=== PATIENT | female | born 1950 | race Caucasian/White ===

== ENCOUNTER 2019-05-24 17:30 | Inpatient (IN) | payer OTHER ==
[~2019-05-24] VITALS: Ht 162.6 cm; Wt 67.0 kg
[2019-05-24 17:30] VITALS: BP 160/75
[~2019-05-24 17:30] MED LIST: ATIVAN1 MG; DAILY VITE1 EACH PO; DRY MOUTH45 ML PO; LOPERAMIDE 2 MG2 M1 PO; MEDROLDOSEPACK PO; MELATONIN3 MG PO; POTASSIUM20; PRAVACHOL40 MG PO; RANITIDINE 150150 M1 PO; SALINE NASAL SP30 ML; VENTOLIN HFA INH8 GM INH; ZADITOR5 M1
[2019-05-24 17:57] LABS: ABSOLUTE EOSINOPHILS 0.1 thou/uL (0.0-0.7); ABSOLUTE LYMPHOCYTES 1.7 thou/uL (0.8-5.3); ABSOLUTE MONOCYTES 0.8 thou/uL (0.0-1.2); ABSOLUTE NEUTROPHILS 3.9 thou/uL (1.6-8.1); BASOPHILS 0.7 %; EOSINOPHILS 2.2 %; HEMATOCRIT 46.5 % (37.0-47.0); HEMOGLOBIN 16.1 gm/dL (12.0-15.0); LYMPHOCYTES 26.1 %; MCH 32.2 pg (26.0-34.0); MCHC 34.6 g/dL (28.0-37.0); MCV 93.2 fL (80.0-100.0); MONOCYTES 11.5 %; MPV 8.9 fl. (7.2-11.1); NUCLEATED RBCS 0 /100WBC; PLATELET COUNT* 221 thou/uL (150-400); POLYS 59.5 %; RBC 4.99 mil/uL (4.20-5.00); RDW-CV 14.3 % (10.5-14.5); WBC 6.6 thou/uL (4.0-11.0)
[2019-05-24] MEDS ORDERED: ATENOLOL 25 MG25 M1 PO (17:59)
[2019-05-24] MEDS ORDERED: KLOR-CON 10 ER10 MEQ PO (17:59)
[2019-05-24] MEDS ORDERED: LOPERAMIDE 2 MG2 M1 PO (17:59)
[2019-05-24] MEDS ORDERED: SYMBICORT80 MCG/4.1 INH (18:00)
[2019-05-24] MEDS ORDERED: ASA81BEC PO (18:00)
[2019-05-24] MEDS ORDERED: EVOXAC30 MG PO (18:00)
[2019-05-24] MEDS ORDERED: ATIVAN1 M1 PO (18:01)
[2019-05-24] MEDS ORDERED: RESTASIS MULTI5.5 ML OPHTHALMIC (18:01)
[2019-05-24] MEDS ORDERED: MELATONIN10 M3 PO (18:02)
[2019-05-24] MEDS ORDERED: CELEXA 20 MG TA20 MG PO (18:02)
[2019-05-24] MEDS ORDERED: COQ-1030 MG PO (18:02)
[2019-05-24] MEDS ORDERED: CLIMARA1 EAC3 TRANSDERM (18:03)
[2019-05-24 18:10] LABS: CALCIUM 8.8 mg/dL (8.5-10.1); CREATININE 1.3 mg/dL (0.6-1.3); POTASSIUM 3.3 mmol/L (3.5-5.1)
[2019-05-24 18:13] LABS: APTT 25.8 Seconds (25.0-31.3); PROTIME 10.6 Seconds (9.20-11.50)
[2019-05-24 18:21] LABS: ALBUMIN 3.5 g/dL (3.4-5.0); TOTAL BILIRUBIN 0.6 mg/dL (<0.1-1.0); TOTAL PROTEIN 7.2 g/dL (6.4-8.2)
[2019-05-24 18:51] LABS: URINE BILIRUBIN NEGATIVE (Negative); URINE BLOOD NEGATIVE (Negative); URINE CLARITY SL CLOUDY; URINE COLOR YELLOW; URINE GLUCOSE-RANDOM NEGATIVE (Negative); URINE KETONES 1+ (Negative); URINE LEUKOCYTES-REFLEX 1+ (Negative); URINE NITRITE-REFLEX NEGATIVE (Negative); URINE PROTEIN NEGATIVE (Negative); URINE SPECIFIC GRAVITY 1.015 (1.005-1.030); URINE UROBILINOGEN 0.2 E.U./dl (0.2-1.0)
[2019-05-24 18:57] LABS: SQUAMOUS 4-10 Moderate /LPF (0-3)
[2019-05-24 18:58] LABS: CASTS None Seen /LPF (None Seen); URINE RBC 0-2 Rare /HPF (0-2); URINE WBC-REFLEX 0-5 Rare /HPF (0-5)
[2019-05-24 18:59] LABS: AMORPHOUS PHOSPHATES Many /LPF (None Seen)
[2019-05-24 20:20] VITALS: BP 160/77
[2019-05-24 20:26] VITALS: BP 155/65
[2019-05-25] VITALS: BP 150/89
[2019-05-25 04:00] VITALS: BP 144/88
--- NOTE | 2019-05-25 04:56 | NUR ---
RECIEVED PT PER CART FROM ER AT APPROX 2020. PT IS AWAKE AND ORIENTED TO SELF AND PLACE, PT IS STILL CONFUSED AND KEPT ON ASKING WHERE SHE IS AND WHAT AND WHY SHE'S HERE FOR. MATERNITY NURSE PLACED-TRACING SR. ADMISSION ASSESSMENT DONE AND CHARTED. PT ADVISED ON THE USE OF CALL LIGHT AND ON THE ROOM SET UP. FALL PRECAUTIONS IN PLACE. BED LOCKED AND IN LOWEST POSITION. CALL LIGHT WITHIN REACH. HOURLY ROUNDING DONE FOR PT SAFETY.
[2019-05-25 05:37] LABS: CHOLESTEROL 162 mg/dL (<200); HDL CHOLESTEROL 56 mg/dL (>40); LDL CHOLESTEROL 93 mg/dL (<100); TC:HDL 2.9 Ratio (Not establshd); TRIGLYCERIDE 65 mg/dL (<150); VLDL 13 mg/dL (<40)
[2019-05-25 05:50] LABS: SERUM ASSESSMENT Clear
[2019-05-25 07:47] LABS: CALCIUM 8.7 mg/dL (8.5-10.1); CREATININE 0.8 mg/dL (0.6-1.3); MAGNESIUM 1.7 mg/dL (1.8-2.4)
[2019-05-25 08:00] VITALS: BP 147/71
--- NOTE | 2019-05-25 11:09 | EKG ---
[place] [address] ELECTROCARDIOGRAM REPORT Name: NEREYDA ATKINS Room: [address] ADM IN .R.#: [id number] Admission: 05/24/19 Attend Phys: Anabella Mike Discharge: Date of : 52 Report #: [id number] THIS REPORT FOR: //name// [facility] ED Test Date: 2019-05-24 Test Time: 17:54:46 Pat Name: NEREYDA ATKINS Department: Room: 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: : 1950 Requested By: Mitch Hammond Order Number: [id number] MD: Jose Saleem Measurements Intervals [place] Rate: 70 P: 63 NM: 146 QRS: 48 QRSD: 88 T: -33 QT: 483 QTc: 522 Interpretive Statements Sinus rhythm Probable left atrial enlargement Borderline repolarization abnormality Prolonged QT interval No previous ECG available for comparison Electronically Signed On 05-25-2019 11:09:41 KING MAKER by Jose Saleem [email or web address] <ELECTRONICALLY SIGNED> By: Jose Saleem MD, [facility] 05/25/19 1109 [id number] Jose Saleem MD, FACC /EPI
[2019-05-25 12:14] VITALS: BP 145/76
--- NOTE | 2019-05-25 12:35 | NUR ---
Pt is A&O. Resides at home with her . Independent. No DME. No hx of HH or SNF. Goal is home at tx, Pt states that she may want HH. If Pt does decide on HH, fax facesheet, HH orders and H&P to [phone]
--- NOTE | 2019-05-25 13:47 | 2DMMODE ---
[place] [address] 2 D/M-MODE ECHOCARDIOGRAM Name: NEREYDA ATKINS Room: [address] IN [facility]#: [id number] Admission: 05/24/19 Attend Phys: Zack Gamez Discharge: Date of : 52 Date of Service: 05/25/19 1347 Report #: [id number] THIS REPORT FOR: //name// APPROVED REPORT Study performed: 05/25/2019 12:09:19 EXAM: Comprehensive 2D, Doppler, and color-flow Echocardiogram Patient Location: In-Patient Room #: 201 Status: routine BSA: 1.80 HR: 61 bpm BP: 147/71 mmHg Rhythm: NSR Other Information Study Quality: Good Indications CVA/TIA Echo Enhancing Agent Indication: Rule out Shunt Agent(s) / Amount(s) Used: Agitated Saline 10 cc 2D Dimensions IVSd: 10.20 (7-11mm) LVOT Diam: 18.39 (18-24mm) LVDd: 38.72 mm PWd: 10.76 (7-11mm) Ascending Ao: 30.51 (22-36mm) LVDs: 21.80 (25-40mm) Aortic Root: 28.64 mm Volumes Left Atrial Volume (Systole) LA ESV Index: 28.40 mL/m2 Aortic Valve AoV Peak Ron.: 1.11 m/s AO Peak Gr.: 4.95 mmHg LVOT Max P.25 mmHg AO Mean Gr.: 2.65 mmHg LVOT Mean P.53 mmHg LVOT Max V: 0.90 m/s AO V2 VTI: 25.76 cm LVOT Mean V: 0.57 m/s RYAN (VTI): 2.33 cm2 LVOT V1 VTI: 22.56 [place] [address] 2 D/M-MODE ECHOCARDIOGRAM Name: NEREYDA ATKINS Room: [address] IN .R.#: [id number] Admission: 05/24/19 Attend Phys: Zack Gamez Discharge: Date of : 52 Date of Service: 05/25/19 1347 Report #: [id number] Mitral Valve E/A Ratio: 1.72 MV Decel. Time: 157.47 ms MV E Max Ron.: 0.64 m/s MV PHT: 45.67 ms MVA (PHT): 4.82 cm2 TDI E/Lateral E': 5.82 E/Medial E': 6.40 Medial E' Ron.: 0.10 m/s Lateral E' Ron.: 0.11 m/s Pulmonary Valve PV Peak Ron.: 0.63 m/s PV Peak Gr.: 1.60 mmHg Tricuspid Valve RAP Estimate: 5.00 mmHg TR Peak Gr.: 23.83 mmHg RVSP: 28.00 mmHg PA Pressure: 28.00 mmHg Left Ventricle The left ventricle is normal size. There is normal LV segmental wall motion. There is normal left ventricular wall thickness. Left ventricular systolic function is normal. The left ventricular ejection fraction is within the normal range. LVEF is 60-65%. The left ventricular diastolic function is normal. Right Ventricle The right ventricle is normal size. The right ventricular systolic function is normal. Atria The left atrium size is normal. Interatrial septum is intact without evidence of ASD or PFO. The right atrium size is normal. Aortic Valve Mild aortic valve sclerosis. No aortic regurgitation is present. There is no aortic valvular stenosis. Mitral Valve The mitral valve is normal in structure. Mild mitral regurgitation. No evidence of mitral valve stenosis. Tricuspid Valve The tricuspid valve is normal in structure. Mild tricuspid regurgitation. [place] [address] 2 D/M-MODE ECHOCARDIOGRAM Name: NEREYDA ATKINS Room: [address] IN ..#: [id number] Admission: 05/24/19 Attend Phys: Zack Gamez Discharge: Date of : 52 Date of Service: 05/25/19 1347 Report #: [id number] Pulmonic Valve The pulmonary valve is normal in structure. Mild pulmonic regurgitation. Great Vessels The aortic root is normal in size. IVC is normal in size and collapses >50% with inspiration. Pericardium There is no pericardial effusion. <Conclusion> LVEF is 60-65%. Mild mitral regurgitation. Interatrial septum is intact without evidence of ASD or PFO. <ELECTRONICALLY SIGNED> By: Jose Saleem MD, [facility] 05/25/19 1347 46 46 Jose Saleem MD, FACC /INF
[2019-05-25 15:46] VITALS: BP 133/66
--- NOTE | 2019-05-25 18:22 | NUR ---
ASSUMED PT CARE AT 0700, PT A&O X4 WITH SOME FORGETFULNESS, VSS, RA, HAND MARKER TRACING SINUS RHYTHM, FULL ASSESSMENT CHARTED. PT TO DISCHARGE TOMORROW, HOURLY ROUNDING COMPLETED.
[2019-05-25 20:00] VITALS: BP 150/82
[2019-05-26] VITALS: BP 150/78
[2019-05-26 02:06] LABS: GLYCOHEMOGLOBIN (HGB A1C) 5.4 % (4.8-5.6)
[2019-05-26] MEDS ORDERED: RESTASIS MULTI5.5 ML EA. EYE (02:46)
--- NOTE | 2019-05-26 03:49 | NUR ---
ASSUMED PT CARE AT APPROX 1930. PT IS AWAKE AND ORIENTED X4, WITH SOME FORGETFULNESS. VSS ON ROOM AIR. IT BUSINESS PROCESS ARCHITECT IN PLACE TRACING SR. ASSESSMENT DONE AND CHARTED. PT IS ABLE TO SLEEP MOST OF THE NIGHT. CALL LIGHT WITHIN REACH. HIGH FALL PRECAUTIONS IN PLACE. HOURLY ROUNDING DONE FOR PT SAFETY.
[2019-05-26 04:00] VITALS: BP 141/68
[2019-05-26] MEDS ORDERED: MINOCYCLINE HC100 M2 PO (08:01)
[2019-05-26] MEDS ORDERED: PLAVIX 75 MG TA75 MG PO ×2 (08:01→13:26)
--- NOTE | 2019-05-26 11:57 | NUR ---
ASSUMED CARE OF PATIENT THIS AM AT 0730. PATIENT IS ALERT AND ORIENTED X 4. SHE DENIES PAIN OR WEAKNESS. NO NEUROLOGICAL DEFICITS ASSESSED. TELE SHOWS SR TO SB. PATIENT'S K+ LEVELS STILL LOW PER LAB. PO REPLACEMENT GIVEN. DR IN TO ROUND AND DISCHARGE PLANNED FOR TODAY AFTER ELECTROLYTE REPLACEMENT. PATIENT HAS BEEN UP IN THE ROOM WITH HER SPOUSE. NO FALLS OR INJURY. PATIENT STARTED ON PLAVIX TODAY PER ORDER AND ASA DISCONTINUED.
--- NOTE | 2019-05-26 12:58 | NUR ---
PT EVALUATION ORDERS RECEIVED AND ACKNOWLEDGED. PER NSG PENDING DISCHARGE TO HOME. PT UP IN ROOM WITH SPOUSE. SPOKE WITH PT AND SPOUSE. PT INDICATES SHE DOES NOT FEEL THAT ACUTE PT SERVICES ARE INDICATED AT THIS TIME. WILL DISCHARG PT ORDERS PER PT REQUEST.
[2019-05-26 13:12] LABS: MAGNESIUM 1.9 mg/dL (1.8-2.4); POTASSIUM 4.5 mmol/L (3.5-5.1)
[2019-05-26 13:28] VITALS: BP 141/68
--- NOTE | 2019-05-27 16:32 | NUR ---
PT. DISCHARGE TO HOME PRIOR TO O.T. EVAL. PLEASE ORDER FURTHER O.T. SERVICES IF NEEDED.
--- NOTE | 2019-06-03 13:36 | EEG ---
[address] [address] EEG STUDY REPORT Name: NEREYDA ATKINS Room: [address] IN M.R.#: [id number] Admission: 05/24/19 Attend Phys: Anabella Mike Discharge: 05/26/19 Date of : 52 Report #: [id number] THIS REPORT FOR: //name// CC: Salvatore Gamez DATE OF SERVICE: 05/25/2019 This patient is being evaluated for altered mental status. EEG was done by placing the electrode by standard 10-20 system of electrode placement. Both referential and sequential montages were used for recording. Background activity in this patient's EEG is about 11 Hz and 30 microvolts. Photic stimulation is unremarkable. The patient became drowsy and that is associated with bilateral slowing and vertex sharp waves. Throughout the record, no active epileptiform activity was noticed. IMPRESSION: This patient's EEG is unremarkable. Thank you very much for this referral. <ELECTRONICALLY SIGNED> By: Spencer Owens MD 06/03/19 1336 1423 1533Prenato Owens MD /nt
--- NOTE | 2019-06-03 13:36 | CON ---
[address] [address] CONSULTATION Name: WILBERTNEREYDA Dale Room: [address] IN M.R.#: [id number] Admission: 05/24/19 Attend Phys: Anabella Mike Discharge: 05/26/19 Date of : 52 Report #: [id number] THIS REPORT FOR: //name// CC: Salvatore Gamez DATE OF SERVICE: 05/25/2019 HISTORY OF PRESENT ILLNESS: This is a 69-year-old female patient who was admitted with somewhat of an unusual episode. She was sitting on the chair. She had some nausea and vomiting. She slumped and she was not able to walk. She was confused, but she has become better from that. The symptoms have not fully resolved. She never had this kind of symptoms before. She has multiple other problems. She goes to [facility]. Initially, they thought she has a Sjogren, but subsequently they thought she may have scleroderma. REVIEW OF SYSTEMS: Indicate that this patient has multiple problems. She has been seen at [facility] for rheumatological disorder. She has a history of anxiety and depression. She has a history of Sjogren and maybe scleroderma. She had hysterectomy in the past. She has dyslipidemia. She does have a history of hypertension. This was her relevant 14-point review of system. She does not complain of any new eye, ENT, cardiac, respiratory, , musculoskeletal, constitutional, dermatological, hematological, psychiatric, throat, allergic symptom associated with present symptomatology. PAST MEDICAL HISTORY: Positive for the diagnosis of scleroderma, but she also thinks she may have a Sjogren also. FAMILY HISTORY: Negative for any early age stroke. SOCIAL HISTORY: She says she does not smoke. PHYSICAL EXAMINATION: Indicates she is alert, responsive, able to follow simple and complex command. She is oriented today. Her thinks her memory and fund of knowledge has improved. Cranial nerve examination 2-12 looks unremarkable. Strength, sensation, reflexes and tone look symmetrical. There is no cerebellar sign. I could not have a very good look at the patient's fundus. There is no meningeal sign. There is no carotid bruit. She is thinly built individual. She does not have any dysmorphic features of eyes, ears and face. Her visions and hearing looks adequate. Cardiac exam is unremarkable. No respiratory difficulty or rhonchi was noticed on either side. Blood pressure is 144/88, respiration is 16, pulse is 66 and temperature is 97.9. LABORATORY DATA: White count is normal at 6.6. Potassium is trace low at 3.0. Magnesium was a trace low at 1.7. She did have a CT scan of the head, which was reviewed and that does not show any acute abnormality. [place] [address] CONSULTATION Name: NEREYDA ATKINS Room: [address] IN [facility].#: [id number] Admission: 05/24/19 Attend Phys: Anabella Mike Discharge: 05/26/19 Date of : 52 Report #: [id number] IMPRESSION: An episode which is not typical for transient ischemic attack or seizures, but both cannot be excluded. She is scheduled to have an MRI done and we will see what it shows. Further workup and management will depend upon the outcome of the testing. Symptom like this can be secondary to posterior fossa TIA, but as mentioned above, it is difficult to tell in this patient and we will await the results of MRI and EEG for the further workup and evaluation. Thank you very much for this consult and we will follow this patient along with you. <ELECTRONICALLY SIGNED> By: Spencer Owens MD 06/03/19 1336 0909 0924Spencer Owens MD /nt
== END 2019-05-26 14:55 | disposition home or self-care (01) | DRG 71 ==
LOC: M.ERS 17:30 → M.TBA-ER 18:41 → M.2W 18:41
PROVIDERS: Family Medicine; Internal Medicine; ADMIT Internal Medicine
DX: G45.4 Transient global amnesia (principal); N39.0 Urinary tract infection, site not specified; I16.1 Hypertensive emergency; I10 Essential (primary) hypertension; F32.9 Major depressive disorder, single episode, unspecified; E78.5 Hyperlipidemia, unspecified; F41.9 Anxiety disorder, unspecified; E78.00 Pure hypercholesterolemia, unspecified; E87.6 Hypokalemia; Z88.8 Allergy status to other drugs, medicaments and biological substances; Z91.040 Latex allergy status; Z79.899 Other long term (current) drug therapy; Z79.82 Long term (current) use of aspirin; Z90.49 Acquired absence of other specified parts of digestive tract; Z90.710 Acquired absence of both cervix and uterus

== ENCOUNTER 2019-06-02 22:34 | Inpatient (IN) | payer OTHER ==
[~2019-06-02] VITALS: Ht 162.6 cm; Wt 67.6 kg
[~2019-06-02 22:34] MED LIST changes: +ASA81BEC PO; +ATENOLOL 25 MG25 M1 PO; +ATIVAN1 M1 PO; +CELEXA 20 MG TA20 MG PO; +CLIMARA1 EAC3 TRANSDERM; +COQ-1030 MG PO; +EVOXAC30 MG PO; +KLOR-CON 10 ER10 MEQ PO; +MELATONIN10 M3 PO; +MINOCYCLINE HC100 M2 PO; +PLAVIX 75 MG TA75 MG PO; +RESTASIS MULTI5.5 ML EA. EYE; +RESTASIS MULTI5.5 ML OPHTHALMIC; +SYMBICORT80 MCG/4.1 INH
[2019-06-02] MEDS ORDERED: LOMOTIL 2.5-0.01 TAB PO (23:23)
[2019-06-02] MEDS ORDERED: KRILL OIL500 MG PO (23:24)
[2019-06-02] MEDS ORDERED: LOPERAMIDE 2 MG2 M1 PO (23:26)
[2019-06-02] MEDS ORDERED: BIOTIN 800 MCG1 EACH PO (23:26)
[2019-06-02 23:32] LABS: ABSOLUTE BASOPHILS 0.1 thou/uL (0.0-0.2); ABSOLUTE EOSINOPHILS 0.2 thou/uL (0.0-0.7); ABSOLUTE LYMPHOCYTES 1.1 thou/uL (0.8-5.3); ABSOLUTE MONOCYTES 0.6 thou/uL (0.0-1.2); BASOPHILS 1.1 %; EOSINOPHILS 3.2 %; HEMATOCRIT 44.8 % (37.0-47.0); HEMOGLOBIN 15.5 gm/dL (12.0-15.0); LYMPHOCYTES 15.5 %; MCH 32.3 pg (26.0-34.0); MCHC 34.6 g/dL (28.0-37.0); MCV 93.4 fL (80.0-100.0); MONOCYTES 8.4 %; MPV 9.3 fl. (7.2-11.1); NUCLEATED RBCS 0 /100WBC; PLATELET COUNT* 229 thou/uL (150-400); POLYS 71.8 %; RDW-CV 14.6 % (10.5-14.5); WBC 6.9 thou/uL (4.0-11.0)
[2019-06-02 23:42] LABS: CALCIUM 9.2 mg/dL (8.5-10.1); CREATININE 0.9 mg/dL (0.6-1.3)
[2019-06-02 23:46] LABS: ALBUMIN 3.2 g/dL (3.4-5.0); MAGNESIUM 1.6 mg/dL (1.8-2.4); TOTAL BILIRUBIN 0.4 mg/dL (<0.1-1.0)
[2019-06-03] VITALS (13 sets, daily range): BP systolic 111–175; BP diastolic 65–89
[2019-06-03 01:40] LABS: URINE BILIRUBIN NEGATIVE (Negative); URINE BLOOD TRACE (Negative); URINE CLARITY CLEAR; URINE COLOR YELLOW; URINE GLUCOSE-RANDOM NEGATIVE (Negative); URINE KETONES NEGATIVE (Negative); URINE LEUKOCYTES-REFLEX NEGATIVE (Negative); URINE NITRITE-REFLEX NEGATIVE (Negative); URINE PROTEIN NEGATIVE (Negative); URINE SPECIFIC GRAVITY <= 1.005 (1.005-1.030); URINE UROBILINOGEN 0.2 E.U./dl (0.2-1.0)
--- NOTE | 2019-06-03 06:39 | NUR ---
RECEIVED REPORT FROM SD MORELOS. PT TRANSFERRED TO 310. PT A&OX4. VSS. ADMISSION HISTORY & PHYSICAL ASSESSMENT COMPLETED AND CHARTED. PT ON RA. PT UPADLIB TO BSC. DENIES ANY PAIN OR DISCOMOFRT. INSTRUCTED ON NPO FOR US OF ABDOMEN TODAY. PT ABLE TO SLEEP WELL ON BED.
[2019-06-03 08:54] LABS: POTASSIUM 3.3 mmol/L (3.5-5.1)
[2019-06-03 10:59] LABS: ALBUMIN 2.9 g/dL (3.4-5.0); CALCIUM 8.5 mg/dL (8.5-10.1); CREATININE 0.8 mg/dL (0.6-1.3); POTASSIUM 3.3 mmol/L (3.5-5.1); TOTAL BILIRUBIN 0.4 mg/dL (<0.1-1.0); TOTAL PROTEIN 6.4 g/dL (6.4-8.2)
--- NOTE | 2019-06-03 11:10 | NUR ---
PT A&OX4 VSS. PT HAD ABD U/S THIS AM, AWAITING RESULTS. ORDER FOR ABD CT, PROCEDURE DELAYED R/T CRITICAL LAB RESULTS. LAB CONTACTED THIS NURSE WITH CRITICAL TROP OF 6.97. DR CONTI NOTIFIED AND ARRANGEMENTS TO TRANSFER PT TO TELE WERE MADE. CARDIOLOGY CONSULTED AND MET THIS NURSE AND PT IN ROOM ON 2ND FLOOR TO EVALUATE THIS PT. PT AND SPOUSE UPDATED WITH PHYSICIAN AT BEDSIDE. PT TRANSPORTED TO 2ND FLOOR ON BED WITH NURSING STAFF. ALL PERSONAL BELONGINGS ACCOMPANIED PT AND SPOUSE. BEDSIDE REPORT TO SARAH MORELOS ON TELE.
--- NOTE | 2019-06-03 12:00 | NUR ---
pt transferred from [facility] to [facility] floor. on ra. no sob. chest discomfort . vss. see chart. tracing sr on bus monitor. ekg done at bedside. k replacement given. iv fluid started at 100 per hour prior to cardiac cath procedure happening today. npo status. no further complaint. call light at reach. will continue to monitor
--- NOTE | 2019-06-03 12:14 | EKG ---
[place] [address] ELECTROCARDIOGRAM REPORT Name: NEREYDA ATKINS Room: [address] ADM IN M.R.#: [id number] Admission: 06/03/19 Attend Phys: Marimar Young Discharge: Date of : 52 Report #: [id number] THIS REPORT FOR: //name// 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 : 1950 Requested By: Adelaide Kay Order Number: [id number] MD: Jayme Berkowitz Measurements Intervals [place] Rate: 66 P: 48 TN: 142 QRS: 38 QRSD: 94 T: 31 QT: 463 QTc: 486 Interpretive Statements Sinus rhythm Borderline repolarization abnormality Borderline prolonged QT interval Baseline wander in lead(s) I,aVL Compared to ECG 05/24/2019 17:54:46 No significant changes Electronically Signed On 06-03-2019 12:14:10 CHEESEMAKER by Jayme Berkowitz [email or web address] <ELECTRONICALLY SIGNED> By: Jayme Berkowitz MD, [facility] 06/03/19 1214 2245 2245 Jayme Berkowitz MD, [facility] /EPI
--- NOTE | 2019-06-03 12:18 | NUR ---
heparin drip not started since cardiology as seen pt ans is to perform cardiac catheterization in one hour per dr Berkowitz say.
--- NOTE | 2019-06-03 14:04 | NUR ---
PT BACK FROM TRANSCRIPTION MANAGER AT 1350. NO STENT PLACED. R GROIN SITE IS INTACT. DRESSING DRY. PT DENIES CHEST PAIN. ON BEDREST UNITIL 0700 PM. USES BEDPAN. ATIVAN GIVEN. ESTROGEN PATCH ON R LOWER BELLY SINCE 2 WEEKS. PT STATES SHE WEARS PATCH Q WEEK. HOSPITALIST CONTACTED REGARDING ORDERING NEW PATCH. HOSPITALIST REFUSED ORDER DUE TO INCREASED RISK FOR HEART ATTACH OR STROKE WITH ESTROGEN HORMONE. PT DENIES. PAIN. PSYCH TO CBE CONSULTED. WILL CONTINUE TO MONITOR PT .CALL LIGHT AT REACH
--- NOTE | 2019-06-03 14:17 | CARD ---
[address] [address] CARDIAC CATH REPORT Name: NEREYDA ATKINS Room: [address] IN M.R.#: [id number] Admission: 06/03/19 Attend Phys: Siva Gee MD Discharge: Date of : 52 Report #: [id number] THIS REPORT FOR: //name// APPROVED REPORT Study performed: 06/03/2019 12:00:[address] Berkowitz Procedures Performed Left heart catheterization left ventriculography and selective coronary arteriography Indication Non-STEMI , Chest pain Risk Factors Hypercholesterolemia, Hypertension Procedure Narrative The patient was brought electively to the Cardiac Catheterization Laboratory and was prepped and draped in a sterile manner. The right femoral was infiltrated with 2% Lidocaine subcutaneous anesthesia. A 6 Romanian sheath was inserted into the right femoral artery. Coronary angiography was performed using coronary diagnostic catheters. The right coronary system was accessed and visualized with a Diagnostic catheter. The left coronary system was accessed and visualized with a Diagnostic catheter. The left ventricle was accessed and visualized with a Diagnostic catheter. Left ventricular/Aortic Valve gradient assessed via catheter pullback. Left ventriculogram was performed in BERRIOS projection. Pre-demployment femoral angiogram was performed . Closure device was deployed with a 6 Fr Mynx. Coronary Angiography The patient's coronary anatomy is right dominant. Diagnostic Cath Left Main 0% narrowing LAD 30% mid to distal LAD narrowing Circumflex Nondominant vessel with 0% narrowing Right Coronary Dominant vessel with 0% narrowing Left Ventriculography The left ventricle is normal in size with [place] [address] CARDIAC CATH REPORT Name: NEREYDA ATKINS Room: [address] IN M.R.#: [id number] Admission: 06/03/19 Attend Phys: Siva Gee MD Discharge: Date of : 52 Report #: [id number] left ventricular ejection fraction is estimated to be 60%. Left ventricular wall motion abnormalities are not present. There is no mitral insufficiency. Hemodynamics The aortic pressure is 170/70 mmHg with a mean of 94 mmHg. The left ventricular end diastolic pressure is 12 mmHg. There was no gradient across the aortic valve upon pullback. Conclusion #1 mild coronary artery disease characterized by the following: A 30% mid- distal LAD narrowing B normal left main circumflex and right coronary arteries #2 moderate systemic systolic hypertension #3 normal left ventricular systolic function, estimated ejection fraction being 60%. Recommendations Cardiac Risk Reduction Program Diagnostic Cath Approved by: Jayme Berkowitz MD Date/Time: 06/03/2019 14:16:26 <ELECTRONICALLY SIGNED> By: Jayme Berkowitz MD, [facility] 06/03/19 1417 1417 1417Jorajesh Berkowitz MD, FACC /INF
[2019-06-03 15:22] LABS: APTT 27.2 Seconds (25.0-31.3); PROTIME 10.2 Seconds (9.20-11.50)
--- NOTE | 2019-06-03 16:11 | NUR ---
PT NOT ABLE TO VOID USIG BEDPAN. ORDERED STRAIGHT CATHERIZATION. PT WAS STRAIGHT CATH AT 1605. OUTPUT OF 500 CC OF URINE
--- NOTE | 2019-06-03 18:45 | NUR ---
VITAL SIGNS CHARTED. R GROIN INTACT. NO FURTHER COMPLAINT
--- NOTE | 2019-06-03 19:04 | NUR ---
PT OFF BEDREST
--- NOTE | 2019-06-03 19:12 | NUR ---
PSYCH CONSULT DR HAS NO FURTHER RECOMMENDATION. SEE CHART
--- NOTE | 2019-06-03 19:25 | NUR ---
TROP LEVEL 11.1 CARIDOLOGY PAGED AND MESSAGE LEFT
--- NOTE | 2019-06-03 19:57 | EKG ---
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
--- NOTE | 2019-06-04 04:34 | NUR ---
PT A&O MAINTAINING SATS ON RA. OFF OF BED REST POST CATH WITHOUT ISSUE. NO C/O PAIN OR DISCMFORT NOTED BY PT, ANXIETY HAS REMAINED AT A TOLERABLE LEVEL WITHOUT THE USE OF PRN MEDICATION. PT CURRENTLY HAS NO CHEST PAIN AND IS ASLEEP IN BED WITH BED ALARM ON AND CALL LIGHT WITHIN REACH.
[2019-06-04 04:37] VITALS: BP 142/73
[2019-06-04 05:28] LABS: CALCIUM 8.6 mg/dL (8.5-10.1); CREATININE 0.7 mg/dL (0.6-1.3); POTASSIUM 3.3 mmol/L (3.5-5.1)
[2019-06-04 08:00] VITALS: BP 127/64
[2019-06-04 10:32] LABS: ALBUMIN 2.8 g/dL (3.4-5.0); CALCIUM 8.6 mg/dL (8.5-10.1); CREATININE 0.8 mg/dL (0.6-1.3); POTASSIUM 3.3 mmol/L (3.5-5.1); TOTAL BILIRUBIN 0.6 mg/dL (<0.1-1.0); TOTAL PROTEIN 6.4 g/dL (6.4-8.2)
--- NOTE | 2019-06-04 10:38 | CON ---
[address] [address] CONSULTATION Name: WILBERTNEREYDA Hunter Room: [address] ADM IN ..#: [id number] Admission: 06/03/19 Attend Phys: Siva Gee MD Discharge: Date of : 52 Report #: [id number] THIS REPORT FOR: //name// CC: Siva Berkowitz Salvatore Delacruz DATE OF SERVICE: 06/03/2019 LOCATION: The patient in room 210. HISTORY OF PRESENT ILLNESS: The patient is a pleasant 69-year-old female with multiple medical problems including chronic anxiety, Sjogren syndrome and yesterday she presented with both anxiety and a burning chest discomfort with acute onset of shortness of breath. She was brought to the ER and EKG revealed no evidence for STEMI. Subsequent troponin I this morning is 6.97. She notes mild persistent substernal discomfort. There is no history of antecedent myocardial infarction. She does have risk factors for coronary artery disease including a positive family history of coronary artery disease in her father who underwent coronary bypass grafting in his 60s, hypertension, and hypercholesterolemia. CURRENT MEDICATIONS: Include atenolol 25 mg daily, potassium chloride, pravastatin 40 mg at bedtime, Imodium for diarrhea, cyclosporine ophthalmic ointment, and lorazepam 1 mg daily at 1800. She takes other additional supplements. PAST MEDICAL HISTORY: Remarkable for prior cholecystectomy, depression, chronic anxiety and high cholesterol as well as Sjogren syndrome. FAMILY HISTORY: Remarkable for coronary artery bypass grafting in her father. SOCIAL HISTORY: The patient is . She is a nonsmoker, does not drink. REVIEW OF SYSTEMS: Remarkable for the following: GENERAL: She notes chronic anxiety. EYES: There has been no change in visual acuity. HEENT: She denies any headaches. CARDIOVASCULAR: She presented with chest discomfort of a burning character. RESPIRATORY: There is no dyspnea at present, but was dyspneic yesterday associated with her chest discomfort. GASTROINTESTINAL: She has had chronic diarrhea. GENITOURINARY: She denies dysuria or frequency. MUSCULOSKELETAL: [place] [address] CONSULTATION Name: WILBERTNEREYDA Dale Room: [address]#: [id number] Admission: 06/03/19 Attend Phys: Siva Gee MD Discharge: Date of : 52 Report #: [id number] PSYCHIATRIC: There is a history of panic attacks and chronic anxiety as well as antecedent depression. ENDOCRINE: There is no history of diabetes or thyroid problems. HEMATOLOGIC AND LYMPHATIC: She denies bruising or bleeding issues. SKIN: She denies rashes or hives. NEUROLOGIC: No focal neurologic dysfunction. PHYSICAL EXAMINATION: GENERAL: Reveals an anxious, middle-aged female. VITAL SIGNS: Blood pressure is 140/70, pulse rate is 64, respirations are 18 per minute. NECK: Jugular venous pressure is normal. Carotids are 1-2+. CHEST: Clear. CARDIAC: Reveals normal first and second heart sounds without rubs, murmurs, clicks or gallops. ABDOMEN: Moderately obese and nontender. EXTREMITIES: Without edema with intact femoral, pedal and radial pulses. There are no deformity or arthritic changes. There are no petechiae or ecchymoses. EKG is reviewed and demonstrates sinus rhythm with nonspecific ST-T alterations with no evidence for acute injury. LABORATORY DATA: Reveals a hemoglobin of 15.5, white blood cell count of 6900 with 229,000 platelets. Potassium was initially 3, is up to 3.3 after a partial repletion. Sodium 144, BUN 13, creatinine 0.8. Hemoglobin A1c 5.4, troponin I 6.97. NT-BNP 183, LDL 93, VLDL 13, HDL 56. TSH is 2.53. IMPRESSION: 1. Non-ST segment elevation myocardial infarction. 2. Hypertension. 3. Hypercholesterolemia. 4. History of panic attacks. 5. History of depression. 6. Chronic anxiety. 7. Sjogren syndrome. RECOMMENDATIONS: Given the aforementioned clinical scenario with burning chest discomfort last p.m., nonspecific ST-T alterations and a troponin of 6.97 reflecting evidence for non-ST segment elevation myocardial infarction, I would recommend proceeding with cardiac catheterization this afternoon to document the magnitude of coronary artery disease and prospects for [place] [address] CONSULTATION Name: NEREYDA ATKINS Room: [address] IN M.R.#: [id number] Admission: 06/03/19 Attend Phys: Siva Gee MD Discharge: Date of : 52 Report #: [id number] This has been discussed with the patient and family, and we will tentatively plan to proceed with cardiac catheterization on 06/03/2019. <ELECTRONICALLY SIGNED> By: Jayme Berkowitz MD, FACC 06/04/19 1038 1135 1222Jorajesh Berkowitz MD, FACC /nt
--- NOTE | 2019-06-04 11:02 | NUR ---
ASSUMED PT CARE REPORT RECEIVED FROM NURSE PT IS AOX4 ANXIOUS ATIVAN GIVEN. ON RA. VSS. MORNIGN MEDS GIVEN. NO FURTHER COMPLAINT. TYLENOL GIVEN FOR TEMP OF 99.9 AND PAIN IN LEFT UPPER ABD. TRACING SR ON [employer]. PT TO BE TRANSFERED TO S. REPORT GIVEN TO NURSE IN JSS. CALL LIGHT AT REACH.
--- NOTE | 2019-06-04 11:11 | NUR ---
ASSUMED PT CARE REPORT RECEIVED FROM NURSE PT IS AOX4 ON RA. VSS. ANXIOUS ATIVAN GIVEN. TEMP 99.9 TYLENOL GIVEN. PAIN IN LEFT UPPER QUADRANT OF ABD. TYLENOL GIVEN. NO FURTHER COMPLAINT. PT IS TO TRANSFER TO S FLOOR. REPORT GIVEN TO [place] NURSE.
--- NOTE | 2019-06-04 17:00 | NUR ---
PT REMAINED ALERT AND ORIENTED. I AGREE WITH MORNING ASSESSMENT. POTASSIUM REPLACED ORDERED. FALL RISK PRECAUTIONS IN PLACE. HOURLY ROUNDING COMPLETED. WILL CONTINUE TO MONITOR.
--- NOTE | 2019-06-04 18:38 | NUR ---
Spoke with [employer] CLAIM EXAMINER Dr. Ephraim Pfeiffer re: MRCP. Plan for MRCP Thursday. Per Dr. Pfeiffer, I cancelled MRCP for tomorrow, and I reordered it for Thursday. I notified Radiology, and I notified patient's RN. Dr. Pfeiffer will notify Dr. Mueller.
[2019-06-04 19:50] VITALS: BP 143/83
--- NOTE | 2019-06-05 03:16 | NUR ---
PATIENT HAS REMAINED ALERT AND ORIENTED X 4 THROUGHOUT THE SHIFT. RESTING QUIETLY AT HOURLY ROUNDS. UP WITH CGA TO BR AFTER HS MEDS ( MELATONIN AND LORAZEPAM) FOR SAFETY. BED ALARM ON WELL. NO SIGNIFICANT ABDOMINAL PAIN. NO CHEST PAIN. DRESSING CLEAN AND DRY RIGHT GROIN. VITAL SIGNS STABLE. CONTINUE TO MONITOR.
[2019-06-05 04:53] LABS: HEMATOCRIT 42.7 % (37.0-47.0); HEMOGLOBIN 14.6 gm/dL (12.0-15.0); MCH 32.4 pg (26.0-34.0); MCHC 34.3 g/dL (28.0-37.0); MCV 94.5 fL (80.0-100.0); MPV 9.4 fl. (7.2-11.1); RBC 4.52 mil/uL (4.20-5.00); RDW-CV 15.3 % (10.5-14.5); WBC 7.4 thou/uL (4.0-11.0)
[2019-06-05 05:02] LABS: PROTIME 10.7 Seconds (9.20-11.50)
[2019-06-05 05:18] LABS: ALBUMIN 2.7 g/dL (3.4-5.0); CALCIUM 8.6 mg/dL (8.5-10.1); CREATININE 0.8 mg/dL (0.6-1.3); MAGNESIUM 1.8 mg/dL (1.8-2.4); POTASSIUM 3.6 mmol/L (3.5-5.1); TOTAL BILIRUBIN 0.8 mg/dL (<0.1-1.0); TOTAL PROTEIN 6.4 g/dL (6.4-8.2)
--- NOTE | 2019-06-05 06:12 | NUR ---
NPO AT [address] ABDOMEN AND PELVIS THIS AM. PATIENT REPORTS RESTED WELL OVERNIGHT. NO NEW EVENTS THIS SHIFT. NO CHANGES FROM PREVIOUS END OF SHIFT ENTRY.
[2019-06-05 07:25] VITALS: BP 133/76
[2019-06-05 15:06] LABS: IgG 1031 mg/dL (700-1600); IgM 48 mg/dL (26-217)
[2019-06-05 16:00] VITALS: BP 127/75
--- NOTE | 2019-06-05 17:05 | NUR ---
pt remained alert and oriented. pt resting in bed. npo after midnight for mrcp tomorrow. fall risk precautions in place. hourly rounding completed. will continue to monitor.
[2019-06-05 19:54] VITALS: BP 135/73
--- NOTE | 2019-06-06 03:39 | NUR ---
PATIENT HAS REMAINED ALERT AND ORIENTED X 4 WITH SLIGHT FORGEFULNESS NOTED. UP SBA TO BATHROOM. NO DIZZINESS REPORTED. BED ALARM ON FOR SAFETY. MELATONIN AND LORAZEPAM HS FOR SLEEP. NO ACUTE ANXIETY OBSERVED. HAS DENIED PAIN AND NAUSEA. VITAL SIGNS STABLE. NPO AT MIDNIGHT FOR MRCP THIS AM. CONTINUE TO MONITOR.
[2019-06-06 05:00] VITALS: BP 123/76; BP 132/74; BP 133/77
[2019-06-06 05:14] LABS: ABSOLUTE BASOPHILS 0.1 thou/uL (0.0-0.2); ABSOLUTE EOSINOPHILS 0.2 thou/uL (0.0-0.7); ABSOLUTE LYMPHOCYTES 1.6 thou/uL (0.8-5.3); ABSOLUTE MONOCYTES 0.8 thou/uL (0.0-1.2); ABSOLUTE NEUTROPHILS 4.8 thou/uL (1.6-8.1); BASOPHILS 1.2 %; EOSINOPHILS 2.7 %; HEMATOCRIT 43.5 % (37.0-47.0); LYMPHOCYTES 21.9 %; MCH 32.3 pg (26.0-34.0); MCHC 34.4 g/dL (28.0-37.0); MCV 93.9 fL (80.0-100.0); MONOCYTES 10.7 %; MPV 8.8 fl. (7.2-11.1); NUCLEATED RBCS 0 /100WBC; PLATELET COUNT* 196 thou/uL (150-400); POLYS 63.5 %; RBC 4.64 mil/uL (4.20-5.00); RDW-CV 14.6 % (10.5-14.5); WBC 7.5 thou/uL (4.0-11.0)
[2019-06-06 05:44] LABS: ALBUMIN 2.8 g/dL (3.4-5.0); CALCIUM 9.1 mg/dL (8.5-10.1); CREATININE 0.9 mg/dL (0.6-1.3); POTASSIUM 3.7 mmol/L (3.5-5.1); TOTAL BILIRUBIN 0.8 mg/dL (<0.1-1.0); TOTAL PROTEIN 6.8 g/dL (6.4-8.2)
[2019-06-06 07:50] VITALS: BP 120/64
--- NOTE | 2019-06-06 11:58 | NUR ---
MET WITH PT AND SPOUSE, KNOWN TO CM FROM [place] LAST WEEK. PT DC'D WITH NO SERVICES. STATES SHE LIVES WITH SPOUSE AND IS NORMALLY INDEPENDENT AND ACTIVE. USES NO EQUIPMENT AND HASN'T HAD HH OR BEEN TO SNF. DISCUSSED POSSIBLE HH AND EXPLAINED THOSE SERVICES. PT WILL CONSIDER OPTIONS. CM TO FOLLOW
[2019-06-06 13:12] LABS: HEPATITIS B SURFACE AG Negative (Negative)
[2019-06-06] MEDS ORDERED: COLESTIPOL HCL1 G1 PO (16:43)
[2019-06-06 17:56] VITALS: BP 132/74
--- NOTE | 2019-06-06 19:00 | NUR ---
DISCHARGE HOME TO SELF CARE. PATIENT PLEASANT AND COOEPRATIVE THRU SHIFT. MRCP DONE AND RESULTS CALLED TO GI. PRESENT IN RM AT TIME OF DISCHARGE. INSTRUCTIONS REVIEWED W/ PATIENT. STATES VERBALLY OF UNDERSTNADING. COPY OF INSTRUCTIONS AND ORIG SCRIPT GIVEN TO PATIENT IN FOLDER. BELONGINGS GATHERED PER AND LEFT UNIT WITH HIM. PATIENT ESCORTED TO AWAITING VEHICLE PER WITH BUSINESS ASSISTANT PRESENT. DENIES OTHER NEEDS AT THIS TIME. ~TJRN
[2019-06-06 21:10] LABS: ANA INTERPRETATION Positive (()); CENTROMERE PATTERN >1:1280 (())
[2019-06-07 17:08] LABS: METANEPHRINE-PL 28 pg/mL (0-62); NORMETANEPHRINE - PL 64 pg/mL (0-145)
--- NOTE | 2019-06-10 22:46 | CON ---
[address] [address] CONSULTATION Name: WILBERTNEREYDA Hunter Room: [address] IN M.R.#: [id number] Admission: 06/03/19 Attend Phys: Siva Gee MD Discharge: 06/06/19 Date of : 52 Report #: [id number] THIS REPORT FOR: //name// CC: Siva Delacruz DICTATED BY: Susanna Tobin [facility] Please note at the time of this dictation, the patient was seen and physically examined by myself. HISTORY OF PRESENT ILLNESS: This 69-year-old female presented to the Emergency Room complaining last night of symptoms of severe panic and anxiety, sense of doom. She was having some burning in her lower chest, feeling like she could not catch her breath and worsening over the course of the last few hours. She had taken some home Ativan and does have a significant underlying history of anxiety, which had been managed at home. Initially on response, EKG was questionable for a non-STEMI, troponin came back elevated at 6.7 and LFTs were noted to be elevated, they were normal at the end of April and since this admission, they have been elevated. The patient states she had seen Dr. Ley last year and had a colonoscopy and everything was normal. She did follow up with the GI clinic there in September. She states her bowels are continuously loose 3-4 times a day ever since she had her cholecystectomy back in 2012. She does not ever recall that she has ever tried any Colestid or cholestyramine in the past. The patient did have an EGD and colonoscopy with us back in 2011 for iron deficiency anemia. She had grade A esophagitis and medium hiatal hernia and a colon with sigmoid diverticulosis. ALLERGIES: NITROGLYCERIN, SIMVASTATIN, EFFEXOR, AND MAVIC TAPE. MEDICATIONS: From home include potassium, Tenormin, Symbicort, Ativan, Celexa, Pravachol, ranitidine, Imodium, multivitamin, melatonin, Restasis, CoQ10, Climara, Lomotil, Krill oil, Biotin. PAST MEDICAL HISTORY: History of bronchitis, hypertension, depression, anxiety, high cholesterol, Sjogren's and chronic diarrhea. PAST SURGICAL HISTORY: Rectocele repair, cholecystectomy, hernia repair, hysterectomy. FAMILY HISTORY: Noncontributory. SOCIAL HISTORY: Denies any alcohol, tobacco [place] [address] CONSULTATION Name: NEREYDA ATKINS Room: [address]#: [id number] Admission: 06/03/19 Attend Phys: Siva Gee MD Discharge: 06/06/19 Date of : 52 Report #: [id number] REVIEW OF SYSTEMS: Twelve-point review of systems is essentially negative except what was mentioned in the HPI. PHYSICAL EXAMINATION: VITAL SIGNS: Temperature 36.6, pulse 60, respirations 17, blood pressure 144/71. HEART: Regular rate and rhythm. LUNGS: Diminished, but clear. ABDOMEN: Soft, positive bowel sounds in all 4 quadrants with some epigastric to sternal tenderness noted to palpation. LABORATORY DATA: Hemoglobin 15.5, white count is 6.9, platelets 229. LFTs: Total bilirubin 0.4, alkaline phosphatase 178, ALT 194, AST is 103, they were slightly higher upon admission and it come down slightly. Troponin again was 6.97. IMPRESSION: 1. Transaminitis. 2. Diarrhea, likely secondary to bile acid diarrhea post-cholecystectomy. 3. Elevated troponin and evidence of NSTEMI. 4. Sjogren's syndrome. PLAN: 1. Transaminitis, likely related to shock liver secondary to DE. 2. We will continue to follow during the course but patient will follow up KUB with Dr. Ley, who she had seen earlier this year. 3. May do a trial of Colestid to help with her bile acid diarrhea, to see if this helps. 4. Further recommendations to be made once Dr. Mueller sees the patient later today. Thank you for allowing us to participate in this patient's care. Please do not hesitate to call with any questions in regard to this consult. <ELECTRONICALLY SIGNED> By: Randal Mueller DO 06/10/19 2246 [id number] [id number] Mueller DO /nt
== END 2019-06-06 19:00 | disposition home or self-care (01) | DRG 281 ==
LOC: M.ERS 22:34 → M.2W 06-03 01:56 → M.TBA-ER 06-03 01:56 → M.3W 06-03 01:56 → M.ORTHSURG 06-03 01:56 → M.3W 06-03 03:15 → M.2W 06-03 11:14 → M.ORTHSURG 06-04 11:19
PROVIDERS: Emergency Medicine; Family Medicine; Internal Medicine; Internal Medicine Gastroenterology; ADMIT Internal Medicine
PROC: B2111ZZ Fluoroscopy of Multiple Coronary Arteries using Low Osmolar Contrast (ICD-10-PCS; principal; 2019-06-03)
PROC: B2151ZZ Fluoroscopy of Left Heart using Low Osmolar Contrast (ICD-10-PCS; principal; 2019-06-03)
PROC: 4A023N7 Measurement of Cardiac Sampling and Pressure, Left Heart, Percutaneous Approach (ICD-10-PCS; principal; 2019-06-03)
DX: I21.A1 Myocardial infarction type 2 (principal); E44.0 Moderate protein-calorie malnutrition; K52.9 Noninfective gastroenteritis and colitis, unspecified; I25.10 Atherosclerotic heart disease of native coronary artery without angina pectoris; F41.0 Panic disorder [episodic paroxysmal anxiety]; E83.42 Hypomagnesemia; R74.0 Nonspecific elevation of levels of transaminase and lactic acid dehydrogenase [LDH]; E87.6 Hypokalemia; F32.9 Major depressive disorder, single episode, unspecified; E78.00 Pure hypercholesterolemia, unspecified; M35.00 Sjogren syndrome, unspecified; I10 Essential (primary) hypertension; F41.1 Generalized anxiety disorder; K75.4 Autoimmune hepatitis; Z79.899 Other long term (current) drug therapy; Z91.09 Other allergy status, other than to drugs and biological substances; Z90.49 Acquired absence of other specified parts of digestive tract; Z90.710 Acquired absence of both cervix and uterus; Z82.49 Family history of ischemic heart disease and other diseases of the circulatory system; Z79.82 Long term (current) use of aspirin; Z79.01 Long term (current) use of anticoagulants; Z68.25 Body mass index [BMI] 25.0-25.9, adult; Z88.8 Allergy status to other drugs, medicaments and biological substances

== ENCOUNTER 2019-08-18 17:13 | Inpatient (IN) | payer MEDICARE ==
[~2019-08-18] VITALS: Ht 162.6 cm; Wt 79.5 kg
[~2019-08-18 17:13] MED LIST changes: +BIOTIN 800 MCG1 EACH PO; +COLESTIPOL HCL1 G1 PO; +KRILL OIL500 MG PO; +LOMOTIL 2.5-0.01 TAB PO
[2019-08-18 17:20] VITALS: BP 170/94
[2019-08-18] MEDS ORDERED: EVOXAC30 MG PO (17:27)
[2019-08-18] MEDS ORDERED: LOPERAMIDE 2 MG2 M1 PO (17:28)
[2019-08-18] MEDS ORDERED: RESTASIS MULTI5.5 ML (17:30)
[2019-08-18 18:10] LABS: URINE BILIRUBIN NEGATIVE (Negative); URINE BLOOD NEGATIVE (Negative); URINE CLARITY CLEAR; URINE COLOR YELLOW; URINE GLUCOSE-RANDOM NEGATIVE (Negative); URINE KETONES NEGATIVE (Negative); URINE LEUKOCYTES-REFLEX NEGATIVE (Negative); URINE NITRITE-REFLEX NEGATIVE (Negative); URINE PROTEIN NEGATIVE (Negative); URINE SPECIFIC GRAVITY 1.025 (1.005-1.030); URINE UROBILINOGEN 0.2 E.U./dl (0.2-1.0)
[2019-08-18 18:20] LABS: HEMOGLOBIN 16.2 gm/dL (12.0-15.0); MCH 32.3 pg (26.0-34.0); MCHC 34.6 g/dL (28.0-37.0); MCV 93.4 fL (80.0-100.0); MPV 9.1 fl. (7.2-11.1); NUCLEATED RBCS 0 /100WBC; PLATELET COUNT* 223 thou/uL (150-400); RBC 5.03 mil/uL (4.20-5.00); RDW-CV 14.7 % (10.5-14.5); WBC 7.7 thou/uL (4.0-11.0)
[2019-08-18 18:35] LABS: CALCIUM 8.3 mg/dL (8.5-10.1); POTASSIUM 3.3 mmol/L (3.5-5.1)
[2019-08-18 18:40] LABS: ALBUMIN 3.6 g/dL (3.4-5.0); TOTAL BILIRUBIN 0.9 mg/dL (<0.1-1.0); TOTAL PROTEIN 7.7 g/dL (6.4-8.2)
[2019-08-18 19:07] LABS: ABSOLUTE LYMPHOCYTES 0.4 thou/uL (0.8-5.3); ABSOLUTE MONOCYTES 0.2 thou/uL (0.0-1.2); ABSOLUTE NEUTROPHILS 7.1 thou/uL (1.6-8.1)
[2019-08-18 19:08] LABS: ANISOCYTOSIS Occasional; PLATELET ESTIMATE ADEQUATE
[2019-08-18 21:40] VITALS: BP 146/89
[2019-08-18 21:45] VITALS: BP 155/89
[2019-08-19 08:00] VITALS: BP 132/79
[2019-08-19 10:05] LABS: ABSOLUTE LYMPHOCYTES 0.5 thou/uL (0.8-5.3); ABSOLUTE MONOCYTES 0.7 thou/uL (0.0-1.2); BASOPHILS 0.3 %; HEMATOCRIT 43.9 % (37.0-47.0); HEMOGLOBIN 14.9 gm/dL (12.0-15.0); LYMPHOCYTES 3.7 %; MCH 32.3 pg (26.0-34.0); MCHC 33.9 g/dL (28.0-37.0); MCV 95.3 fL (80.0-100.0); MPV 9.1 fl. (7.2-11.1); NUCLEATED RBCS 0 /100WBC; PLATELET COUNT* 213 thou/uL (150-400); RBC 4.61 mil/uL (4.20-5.00); RDW-CV 14.8 % (10.5-14.5); WBC 14.3 thou/uL (4.0-11.0)
[2019-08-19 10:22] LABS: POTASSIUM 3.1 mmol/L (3.5-5.1)
[2019-08-19 10:24] LABS: CALCIUM 6.3 mg/dL (8.5-10.1)
[2019-08-19 10:32] LABS: ALBUMIN 3.3 g/dL (3.4-5.0); TOTAL BILIRUBIN 1.3 mg/dL (<0.1-1.0); TOTAL PROTEIN 6.3 g/dL (6.4-8.2)
[2019-08-19 20:15] VITALS: BP 145/81
[2019-08-20] VITALS (7 sets, daily range): BP systolic 136–156; BP diastolic 70–84
[2019-08-20 04:06] LABS: ABSOLUTE LYMPHOCYTES 0.4 thou/uL (0.8-5.3); ABSOLUTE MONOCYTES 0.8 thou/uL (0.0-1.2); ABSOLUTE NEUTROPHILS 13.2 thou/uL (1.6-8.1); BASOPHILS 0.1 %; HEMATOCRIT 46.4 % (37.0-47.0); HEMOGLOBIN 15.4 gm/dL (12.0-15.0); LYMPHOCYTES 2.6 %; MCH 31.8 pg (26.0-34.0); MCHC 33.2 g/dL (28.0-37.0); MCV 95.8 fL (80.0-100.0); MONOCYTES 5.8 %; MPV 9.7 fl. (7.2-11.1); NUCLEATED RBCS 0 /100WBC; PLATELET COUNT* 202 thou/uL (150-400); POLYS 91.5 %; RBC 4.84 mil/uL (4.20-5.00); WBC 14.5 thou/uL (4.0-11.0)
[2019-08-20 04:28] LABS: ALBUMIN 2.5 g/dL (3.4-5.0); CREATININE 1.3 mg/dL (0.6-1.3); TOTAL BILIRUBIN 1.1 mg/dL (<0.1-1.0); TOTAL PROTEIN 5.9 g/dL (6.4-8.2)
[2019-08-20 04:35] LABS: CALCIUM 5.1 mg/dL (8.5-10.1); POTASSIUM 2.9 mmol/L (3.5-5.1)
--- NOTE | 2019-08-20 12:53 | CON ---
[address] [address] CONSULTATION Name: NEREYDA ATKINS Room: [place] [address] ADM IN .R.#: [id number] Admission: 08/18/19 Attend Phys: Dale Marcano Discharge: Date of : 52 Report #: [id number] THIS REPORT FOR: //name// cc: Salvatore Delacruz MD, Matthew W. MD ~ THIS REPORT FOR: //name// CC: Jayme Roblero DICTATED BY: Susanna Tobin [facility] DATE OF SERVICE: 08/19/2019 Please note at the time of this dictation, the patient was seen and physically examined by myself. REASON FOR CONSULTATION: Abdominal pain post-ERCP pancreatitis. HISTORY OF PRESENT ILLNESS: This is a 69-year-old female who presented to the Emergency Room with upper quadrant abdominal pain. The patient underwent an ERCP with Dr. Mendieta yesterday for dilated CBD. A sphincterotomy was performed and sludge was noted in her duct. The patient states after she got home she started noticing severe abdominal pain radiating into her back. She said it felt like she took some Gas-X without any relief. Pain was constant. She had some nausea and vomiting and prompted her to come into the Emergency Room. ALLERGIES: NITROGLYCERIN, KEFLEX, SIMVASTATIN, EFFEXOR, MAVIC, AND TAPE. MEDICATIONS FROM HOME: Include loperamide, potassium, Tenormin, Symbicort, Ativan, Celexa, pravastatin, Climara, Restasis, and . PAST MEDICAL HISTORY: Hypertension, depression, anxiety, high cholesterol, Sjogren, history of chronic diarrhea, type 2 diabetes, and non-STEMI. She had a recent heart catheterization in 05/2019. She is currently on Plavix. PAST SURGICAL HISTORY: Rectocele, cholecystectomy, hernia repair, and hysterectomy. FAMILY HISTORY: Noncontributory. SOCIAL HISTORY: Denies any alcohol, tobacco, or illegal drug use. REVIEW OF SYSTEMS: A 12-point review of systems [place] [address] CONSULTATION Name: WILBERTNEREYDA Dale Room: [address] IN [facility]#: [id number] Admission: 08/18/19 Attend Phys: Dale Marcano Discharge: Date of : 52 Report #: [id number] what is mentioned in the HPI. PHYSICAL EXAMINATION: VITAL SIGNS: Temperature 37.3, pulse 97, respirations 22, and blood pressure 132/79. HEART: Regular rate and rhythm. LUNGS: Clear. ABDOMEN: Soft. Positive bowel sounds in all 4 quadrants with no masses with tenderness noted in the upper quads. LABORATORY DATA: Hemoglobin 14.9, white count 14.3, and platelets 213. GFR is 55. Lipase on admission was 3195, she is up to 6229. Total bilirubin is 1.3, alkaline phosphatase 110, ALT 202, and AST is 269. CT showed pancreatic edema and fat stranding around the pancreas. IMPRESSION: 1. Abdominal pain. 2. Acute pancreatitis post-ERCP. 3. Nausea and vomiting. 4. Elevated LFTs. 5. Leukocytosis. 6. Sjogren syndrome. PLAN: 1. IV fluids at 250 mL an hour. 2. N.p.o. except for ice chips. 3. We will continue to follow. Thank you for allowing us to participate in this patient's care. Please do not hesitate to call with any questions in regard to this consult. <ELECTRONICALLY SIGNED> By: Anirudh Cordon MD 08/20/19 1253 1208 [id number] Cordon MD /nt
[2019-08-20 19:02] LABS: MAGNESIUM 1.2 mg/dL (1.8-2.4); POTASSIUM 3.1 mmol/L (3.5-5.1)
[2019-08-21] VITALS: BP 138/50
[2019-08-21 04:02] VITALS: BP 151/68
[2019-08-21 04:45] LABS: ABSOLUTE LYMPHOCYTES 0.3 thou/uL (0.8-5.3); ABSOLUTE MONOCYTES 0.6 thou/uL (0.0-1.2); ABSOLUTE NEUTROPHILS 8.9 thou/uL (1.6-8.1); BASOPHILS 0.1 %; HEMATOCRIT 46.3 % (37.0-47.0); HEMOGLOBIN 15.6 gm/dL (12.0-15.0); LYMPHOCYTES 3.2 %; MCH 32.4 pg (26.0-34.0); MCHC 33.6 g/dL (28.0-37.0); MCV 96.4 fL (80.0-100.0); MONOCYTES 5.9 %; MPV 9.4 fl. (7.2-11.1); NUCLEATED RBCS 0 /100WBC; PLATELET COUNT* 167 thou/uL (150-400); POLYS 90.8 %; RBC 4.81 mil/uL (4.20-5.00); RDW-CV 15.5 % (10.5-14.5); WBC 9.8 thou/uL (4.0-11.0)
[2019-08-21 05:34] LABS: ALBUMIN 2.3 g/dL (3.4-5.0); CREATININE 0.7 mg/dL (0.6-1.3); POTASSIUM 3.2 mmol/L (3.5-5.1); TOTAL BILIRUBIN 1.2 mg/dL (<0.1-1.0); TOTAL PROTEIN 5.2 g/dL (6.4-8.2)
[2019-08-21 05:38] LABS: CALCIUM 5.9 mg/dL (8.5-10.1)
[2019-08-21 05:54] LABS: ALBUMIN 2.4 g/dL (3.4-5.0); DIRECT BILIRUBIN 0.6 mg/dL (<0.1-0.3); TOTAL BILIRUBIN 1.2 mg/dL (<0.1-1.0); TOTAL PROTEIN 5.2 g/dL (6.4-8.2)
[2019-08-21 06:04] LABS: PREALBUMIN 14.1 mg/dL (18.0-35.7)
[2019-08-21 08:15] VITALS: BP 156/77
[2019-08-21 09:18] LABS: CALCIUM 6.4 mg/dL (8.5-10.1); CREATININE 0.7 mg/dL (0.6-1.3); POTASSIUM 3.3 mmol/L (3.5-5.1)
[2019-08-21 11:47] VITALS: BP 162/91
[2019-08-21 15:52] VITALS: BP 158/90
[2019-08-21 20:00] VITALS: BP 142/65
[2019-08-21 23:34] LABS: CALCIUM 6.7 mg/dL (8.5-10.1); CREATININE 0.7 mg/dL (0.6-1.3)
[2019-08-21 23:37] LABS: POTASSIUM 2.7 mmol/L (3.5-5.1)
[2019-08-21 23:38] LABS: ALBUMIN 2.3 g/dL (3.4-5.0); MAGNESIUM 2.5 mg/dL (1.8-2.4); TOTAL BILIRUBIN 1.3 mg/dL (<0.1-1.0); TOTAL PROTEIN 5.9 g/dL (6.4-8.2)
[2019-08-22 00:49] VITALS: BP 152/73
[2019-08-22 02:37] LABS: URINE BILIRUBIN NEGATIVE (Negative); URINE BLOOD 3+ (Negative); URINE CLARITY CLEAR; URINE COLOR YELLOW; URINE GLUCOSE-RANDOM NEGATIVE (Negative); URINE LEUKOCYTES-REFLEX NEGATIVE (Negative); URINE NITRITE-REFLEX NEGATIVE (Negative); URINE PROTEIN TRACE (Negative); URINE SPECIFIC GRAVITY >= 1.030 (1.005-1.030); URINE UROBILINOGEN 0.2 E.U./dl (0.2-1.0)
[2019-08-22 03:08] LABS: URINE KETONES 3+ (Negative)
[2019-08-22 03:17] LABS: SQUAMOUS 0-3 Few /LPF (0-3)
[2019-08-22 03:18] LABS: AMORPHOUS URATES Many /LPF (None Seen); COARSE GRANULAR CASTS 0-3 Few /LPF (None Seen); FINE GRANULAR CASTS 0-3 Few /LPF (None Seen); MUCUS >6 Heavy strn/LPF (None Seen); URINE WBC-REFLEX None Seen /HPF (0-5)
[2019-08-22 04:00] VITALS: BP 134/94
[2019-08-22 05:30] LABS: HEMATOCRIT 38.3 % (37.0-47.0); MCH 32.1 pg (26.0-34.0); MCHC 34.8 g/dL (28.0-37.0); MCV 92.3 fL (80.0-100.0); MPV 9.6 fl. (7.2-11.1); NUCLEATED RBCS 0 /100WBC; PLATELET COUNT* 185 thou/uL (150-400); RBC 4.14 mil/uL (4.20-5.00); RDW-CV 15.1 % (10.5-14.5); WBC 10.8 thou/uL (4.0-11.0)
[2019-08-22 05:41] LABS: HEMOGLOBIN 13.3 gm/dL (12.0-15.0)
[2019-08-22 06:17] LABS: ALBUMIN 2.2 g/dL (3.4-5.0); CALCIUM 6.6 mg/dL (8.5-10.1); CREATININE 0.5 mg/dL (0.6-1.3); TOTAL BILIRUBIN 1.4 mg/dL (<0.1-1.0); TOTAL PROTEIN 4.9 g/dL (6.4-8.2)
[2019-08-22 07:51] LABS: ABSOLUTE LYMPHOCYTES 0.4 thou/uL (0.8-5.3); ABSOLUTE MONOCYTES 0.5 thou/uL (0.0-1.2); ABSOLUTE NEUTROPHILS 9.8 thou/uL (1.6-8.1); PLATELET ESTIMATE ADEQUATE; TOXIC GRANULATION 2+
[2019-08-22 08:00] VITALS: BP 159/79
[2019-08-22 13:14] VITALS: BP 104/72
[2019-08-22 13:16] VITALS: BP 104/72
[2019-08-22 16:00] VITALS: BP 152/84
[2019-08-23] VITALS (56 sets, daily range): BP systolic 84–164; BP diastolic 48–91
[2019-08-23 05:18] LABS: MCV 90.8 fL (80.0-100.0)
[2019-08-23 05:21] LABS: HEMATOCRIT 40.9 % (37.0-47.0); HEMOGLOBIN 14.6 gm/dL (12.0-15.0); MCH 32.4 pg (26.0-34.0); MCHC 35.7 g/dL (28.0-37.0); MPV 8.6 fl. (7.2-11.1); NUCLEATED RBCS 1 /100WBC; PLATELET COUNT* 175 thou/uL (150-400); RDW-CV 14.8 % (10.5-14.5)
[2019-08-23 05:41] LABS: MAGNESIUM 1.8 mg/dL (1.8-2.4); PHOSPHORUS* 0.6 mg/dL (2.5-4.9)
[2019-08-23 05:58] LABS: BE -3.5 mmol/L (-2 to +3); PCO2 23.8 mmHg (35.0-45.0); pH 7.484 (7.340-7.450)
[2019-08-23 05:59] LABS: PO2 59.2 mmHg (75.0-100.0)
[2019-08-23 07:03] LABS: ABSOLUTE LYMPHOCYTES 0.3 thou/uL (0.8-5.3); ABSOLUTE MONOCYTES 0.1 thou/uL (0.0-1.2); ABSOLUTE NEUTROPHILS 1.6 thou/uL (1.6-8.1); ATYPICAL LYMPHS 3 %; METAMYELOCYTES 1 %; PLATELET ESTIMATE ADEQUATE
[2019-08-23 08:36] LABS: BE -4.8 mmol/L (-2 to +3); PCO2 23.6 mmHg (35.0-45.0); PO2 113.6 mmHg (75.0-100.0); pH 7.453 (7.340-7.450)
[2019-08-23 09:18] LABS: CALCIUM 7.1 mg/dL (8.5-10.1); CREATININE 0.7 mg/dL (0.6-1.3)
[2019-08-23 09:19] LABS: POTASSIUM 2.7 mmol/L (3.5-5.1)
[2019-08-23 10:01] LABS: URINE BILIRUBIN NEGATIVE (Negative); URINE BLOOD 3+ (Negative); URINE CLARITY CLEAR; URINE COLOR YELLOW; URINE GLUCOSE-RANDOM NEGATIVE (Negative); URINE KETONES 1+ (Negative); URINE LEUKOCYTES-REFLEX NEGATIVE (Negative); URINE NITRITE-REFLEX NEGATIVE (Negative); URINE PROTEIN TRACE (Negative); URINE UROBILINOGEN 0.2 E.U./dl (0.2-1.0)
[2019-08-23 10:07] LABS: BACTERIA-REFLEX 1-9 Few /HPF (None Seen); CASTS None Seen /LPF (None Seen); CRYSTALS None Seen /LPF (None Seen); MUCUS None Seen strn/LPF (None Seen); SQUAMOUS 0-3 Few /LPF (0-3); URINE RBC >20 Many /HPF (0-2); URINE WBC-REFLEX 0-5 Rare /HPF (0-5); YEAST-REFLEX Present (None Seen)
[2019-08-23 10:54] LABS: BE -6.9 mmol/L (-2 to +3); PCO2 37.5 mmHg (35.0-45.0); PO2 69.2 mmHg (75.0-100.0); pH 7.311 (7.340-7.450)
[2019-08-23 12:27] LABS: ALBUMIN 1.5 g/dL (3.4-5.0); DIRECT BILIRUBIN 0.5 mg/dL (<0.1-0.3); TOTAL BILIRUBIN 1.3 mg/dL (<0.1-1.0); TOTAL PROTEIN 4.5 g/dL (6.4-8.2)
[2019-08-23 14:07] LABS: HEMATOCRIT 31.2 % (37.0-47.0); MCH 32.3 pg (26.0-34.0); MCHC 35.2 g/dL (28.0-37.0); MCV 91.9 fL (80.0-100.0); MPV 9.5 fl. (7.2-11.1); RBC 3.39 mil/uL (4.20-5.00); RDW-CV 14.7 % (10.5-14.5)
[2019-08-23 14:09] LABS: WBC 7.4 thou/uL (4.0-11.0)
[2019-08-23 14:17] LABS: INFLUENZA A ANTIGEN Negative (Negative); INFLUENZA B ANTIGEN Negative (Negative)
--- NOTE | 2019-08-23 16:32 | 2DMMODE ---
[facility] [address] [place] [address] 2 D/M-MODE ECHOCARDIOGRAM Name: NEREYDA ATKINS Room: 004 ADM IN .R.#: [id number] Admission: 08/18/19 Attend Phys: Arturo Roblero Discharge: Date of : 52 Date of Service: 08/23/19 1631 Report #: [id number] THIS REPORT FOR: cc: Salvatore Delacruz MD, Matthew W. MD [place], Michael J. MD [facility] ~ APPROVED REPORT Study performed: 08/23/2019 14:51:33 EXAM: Limited 2D Echocardiogram Patient Location: In-Patient Room #: 004 Status: routine BSA: 1.73 HR: 112 bpm BP: 113/73 mmHg Rhythm: NSR Other Information Study Quality: Good Indications Dyspnea Left Ventricle The left ventricle is normal size. There is normal LV segmental wall motion. There is normal left ventricular wall thickness. The left ventricular systolic function is hyperdynamic. LVEF is >70%. Right Ventricle The right ventricle is normal size. The right ventricular systolic function is normal. Atria The left atrium size is normal. The right atrium size is normal. Aortic Valve Mild aortic valve sclerosis. Mitral Valve The mitral valve is normal in structure. [place] [address] 2 D/M-MODE ECHOCARDIOGRAM Name: NEREYDA ATKINS Room: [address] ADM IN M.R.#: [id number] Admission: 08/18/19 Attend Phys: Arturo Roblero Discharge: Date of : 52 Date of Service: 08/23/191630 Report #: [id number] Tricuspid Valve The tricuspid valve is normal in structure. Pulmonic Valve The pulmonary valve is normal in structure. Great Vessels The aortic root is normal in size. Pericardium There is no pericardial effusion. Left pleural effusion. <Conclusion> The left ventricle is normal size. There is normal left ventricular wall thickness. The left ventricular systolic function is hyperdynamic. LVEF is >70%. Mild aortic valve sclerosis. Left pleural effusion. <ELECTRONICALLY SIGNED> By: Ephraim Pfeiffer MD, FACC 08/23/191630 30 30 Ephraim Pfeiffer MD, FACC /INF
[2019-08-23 18:11] LABS: HEMATOCRIT 36.5 % (37.0-47.0); HEMOGLOBIN 12.8 gm/dL (12.0-15.0)
[2019-08-23 22:01] LABS: CALCIUM 6.8 mg/dL (8.5-10.1); CREATININE 0.8 mg/dL (0.6-1.3); POTASSIUM 3.2 mmol/L (3.5-5.1)
[2019-08-24] VITALS (31 sets, daily range): BP systolic 99–137; BP diastolic 38–79
[2019-08-24 05:18] LABS: ABSOLUTE LYMPHOCYTES 0.4 thou/uL (0.8-5.3); ABSOLUTE MONOCYTES 0.6 thou/uL (0.0-1.2); ABSOLUTE NEUTROPHILS 10.1 thou/uL (1.6-8.1); BASOPHILS 0.1 %; HEMATOCRIT 33.8 % (37.0-47.0); HEMOGLOBIN 11.8 gm/dL (12.0-15.0); LYMPHOCYTES 3.2 %; MCH 31.8 pg (26.0-34.0); MCHC 34.9 g/dL (28.0-37.0); MCV 91.3 fL (80.0-100.0); MONOCYTES 5.3 %; MPV 9.1 fl. (7.2-11.1); NUCLEATED RBCS 0 /100WBC; PLATELET COUNT* 160 thou/uL (150-400); POLYS 91.4 %
[2019-08-24 05:25] LABS: BE -1.6 mmol/L (-2 to +3); PCO2 32.6 mmHg (35.0-45.0); pH 7.442 (7.340-7.450)
[2019-08-24 05:50] LABS: ALBUMIN 1.5 g/dL (3.4-5.0); CALCIUM 7.1 mg/dL (8.5-10.1); CREATININE 0.7 mg/dL (0.6-1.3); MAGNESIUM 1.8 mg/dL (1.8-2.4); POTASSIUM 3.7 mmol/L (3.5-5.1); TOTAL BILIRUBIN 0.7 mg/dL (<0.1-1.0); TOTAL PROTEIN 4.8 g/dL (6.4-8.2)
--- NOTE | 2019-08-24 13:00 | CON ---
[address] [address] CONSULTATION Name: NEREYDA ATKINS Room: [address] IN .R.#: [id number] Admission: 08/18/19 Attend Phys: Dale Marcano Discharge: Date of : 52 Report #: [id number] THIS REPORT FOR: //name// cc: Salvatore Delacruz MD, Matthew W. MD ~ THIS REPORT FOR: //name// CC: Salvatore Roblero DATE OF SERVICE: 08/23/2019 ATTENDING PHYSICIAN: Dr. Tillman. REASON FOR EVALUATION: Septic shock, complicated by suspected upper gastrointestinal hemorrhage, severe pancreatitis with respiratory failure, now on ventilatory support. HISTORY OF PRESENT ILLNESS: The patient examined. This is a 69-year-old woman with known history of Sjogren's as well as Raynaud's, who apparently had developed a pancreatitis and underwent ERCP. Day of admission, this was complicated by postoperative abdominal pain, was found to have markedly elevated enzymes to admission. She was on the floor, had clinical deterioration with the severe tachycardia, respiratory insufficiency with pO2 in the 50s. She was transferred to the Intensive Care Unit. Ultimately, was intubated on FiO2 of 100%. Did have a NG placed and had 600 mL of bloody type intestinal secretions. At this point, she is sedated on the vent. She has been empirically started on cefepime, vancomycin was added. Repeat blood cultures were collected. ALLERGIES: LISTED TO CEPHALEXIN, SIMVASTATIN, EFFEXOR, MAVIK AND TAPE. CURRENT MEDICATIONS: Include vancomycin, just added pantoprazole, lorazepam, metoclopramide, cefepime, p.r.n. analgesics, and antiemetics. PAST MEDICAL HISTORY: As described above, history of hypertension, high cholesterol, Sjogren's, Raynaud's, history of chronic diarrhea, status post-hysterectomy, anxiety, depression as well. SOCIAL HISTORY: Nonsmoker, no ethanol, no illicit drug use. FAMILY HISTORY: Noncontributory. REVIEW OF SYSTEMS: Not obtainable. PHYSICAL EXAMINATION: GENERAL: She appears chronically ill, [place] [address] CONSULTATION Name: NEREYDA ATKINS Room: [address]#: [id number] Admission: 08/18/19 Attend Phys: Dale Marcano Discharge: Date of : 52 Report #: [id number] VITAL SIGNS: Temperature 101.1, pulse 126, respirations 40, blood pressure is 104/68. SKIN: Warm, dry, no overt rashes. HEENT: ET, OG tube in place. NECK: Appears to be supple. LUNGS: Few scattered coarse breath sounds, left greater than right. HEART: Tachycardic, regular. ABDOMEN: Soft. There are no overt peritoneal signs. EXTREMITIES: Distal lower extremities without significant edema. GENITOURINARY AND RECTAL: Deferred. LABORATORY DATA: Urinalysis 0-5 white cells. There is some yeast present. Lactic acid of 2.7. Prealbumin of 10.2. Blood cultures collected on the are sterile thus far. Electrolytes: Sodium 145, potassium 2.7, chloride 109, bicarbonate is 18, anion gap of 18, BUN and creatinine 20 and 0.7, GFR of 83. Chest x-ray: Patchy opacity, left mid upper lobe, question of aspiration and pneumonitis versus asymptomatic pulmonary edema and CHF. CBC: White count of 2.0, H and H 14.6, 40.9, platelets of 175, 3% atypical lymphocytes. ABGs prior to intubation, pH of 7.84, pCO2 of 23.8, pO2 of 59.2 on high flow cannula at 13 liters per minute. Lipase from yesterday was 120. CT abdomen with contrast showed diffuse pancreatitis, liver function tests, AST of 81, ALT of 73. Total bilirubin of 1.4, albumin of 2.2, total protein is 4.9. ASSESSMENT: Septic shock, multiorgan dysfunction, currently post-procedure and has what appears to be pneumonitis, probably on the basis of aspiration with multiorgan dysfunction as radiographic changes suggesting severe pancreatitis, also suspected upper gastrointestinal hemorrhage. We will continue broad-spectrum antimicrobial therapy in addition to cefepime and vancomycin. We will add fluconazole. Noted plans for possible transfer. At this point, he has a new central line placed in the perineal site to monitor that expectantly while she is here. Continue efforts to wean off support as allowed and adjust therapy as needed. <ELECTRONICALLY SIGNED> By: Julian Almodovar MD 08/24/19 1300 1055 1135Joquin Almodovar MD /nt
[2019-08-25] VITALS (24 sets, daily range): BP systolic 119–145; BP diastolic 55–83
[2019-08-25 06:42] LABS: ALBUMIN 1.3 g/dL (3.4-5.0); CALCIUM 7.6 mg/dL (8.5-10.1); CREATININE 0.6 mg/dL (0.6-1.3); MAGNESIUM 1.6 mg/dL (1.8-2.4); POTASSIUM 3.2 mmol/L (3.5-5.1); TOTAL BILIRUBIN 0.4 mg/dL (<0.1-1.0); TOTAL PROTEIN 4.5 g/dL (6.4-8.2)
[2019-08-25 07:27] LABS: BE 3.7 mmol/L (-2 to +3); PCO2 35.7 mmHg (35.0-45.0); pH 7.496 (7.340-7.450)
[2019-08-25 09:59] LABS: BE 0 mmol/L (-2 to +3); PO2 79.9 mmHg (75.0-100.0); pH 7.473 (7.340-7.450)
[2019-08-26] VITALS (22 sets, daily range): BP systolic 123–157; BP diastolic 58–82
[2019-08-26 03:57] LABS: HEMATOCRIT 27.5 % (37.0-47.0); MCH 31.9 pg (26.0-34.0); MCHC 33.6 g/dL (28.0-37.0); MCV 94.8 fL (80.0-100.0); MPV 9.9 fl. (7.2-11.1); RBC 2.9 mil/uL (4.20-5.00); RDW-CV 15.6 % (10.5-14.5); WBC 16.5 thou/uL (4.0-11.0)
[2019-08-26 04:10] LABS: MAGNESIUM 2.4 mg/dL (1.8-2.4); PHOSPHORUS* 4.7 mg/dL (2.5-4.9)
[2019-08-26 04:58] LABS: HEMOGLOBIN 9.2 gm/dL (12.0-15.0)
[2019-08-26 05:19] LABS: ALBUMIN 1.3 g/dL (3.4-5.0); CALCIUM 7.3 mg/dL (8.5-10.1); CREATININE 0.5 mg/dL (0.6-1.3); MAGNESIUM 1.7 mg/dL (1.8-2.4); POTASSIUM 3.4 mmol/L (3.5-5.1); TOTAL BILIRUBIN 0.5 mg/dL (<0.1-1.0); TOTAL PROTEIN 4.7 g/dL (6.4-8.2)
[2019-08-26 05:58] LABS: BE 4.2 mmol/L (-2 to +3); PCO2 32.8 mmHg (35.0-45.0); pH 7.526 (7.340-7.450)
[2019-08-27] VITALS (56 sets, daily range): BP systolic 92–178; BP diastolic 42–88
[2019-08-27 06:15] LABS: CALCIUM 7.5 mg/dL (8.5-10.1); CREATININE 0.6 mg/dL (0.6-1.3); MAGNESIUM 1.7 mg/dL (1.8-2.4); PHOSPHORUS* 4.3 mg/dL (2.5-4.9); POTASSIUM 4.2 mmol/L (3.5-5.1)
[2019-08-27 11:13] LABS: BE 2.3 mmol/L (-2 to +3); PCO2 42.3 mmHg (35.0-45.0); PO2 68.2 mmHg (75.0-100.0); pH 7.423 (7.340-7.450)
[2019-08-28] VITALS (35 sets, daily range): BP systolic 119–158; BP diastolic 50–80
[2019-08-28 04:55] LABS: HEMATOCRIT 26.3 % (37.0-47.0); MCH 31.4 pg (26.0-34.0); MCHC 34.4 g/dL (28.0-37.0); MCV 91.2 fL (80.0-100.0); MPV 10.1 fl. (7.2-11.1); NUCLEATED RBCS 0 /100WBC; PLATELET COUNT* 192 thou/uL (150-400); RBC 2.88 mil/uL (4.20-5.00); RDW-CV 15.5 % (10.5-14.5)
[2019-08-28 05:27] LABS: CALCIUM 7.4 mg/dL (8.5-10.1); CREATININE 0.5 mg/dL (0.6-1.3); MAGNESIUM 1.5 mg/dL (1.8-2.4); POTASSIUM 3.4 mmol/L (3.5-5.1)
[2019-08-28 07:31] LABS: ABSOLUTE LYMPHOCYTES 1.4 thou/uL (0.8-5.3); ABSOLUTE MONOCYTES 0.2 thou/uL (0.0-1.2); ABSOLUTE NEUTROPHILS 18.4 thou/uL (1.6-8.1); PLATELET ESTIMATE ADEQUATE
[2019-08-28 13:02] LABS: MAGNESIUM 1.7 mg/dL (1.8-2.4); POTASSIUM 3.7 mmol/L (3.5-5.1)
[2019-08-29] VITALS (33 sets, daily range): BP systolic 82–175; BP diastolic 39–90
[2019-08-29 05:40] LABS: ABSOLUTE EOSINOPHILS 0.2 thou/uL (0.0-0.7); ABSOLUTE LYMPHOCYTES 0.6 thou/uL (0.8-5.3); ABSOLUTE MONOCYTES 0.8 thou/uL (0.0-1.2); ABSOLUTE NEUTROPHILS 15.3 thou/uL (1.6-8.1); BASOPHILS 0.2 %; EOSINOPHILS 1.2 %; HEMOGLOBIN 9.6 gm/dL (12.0-15.0); LYMPHOCYTES 3.5 %; MCH 31.3 pg (26.0-34.0); MCHC 34.3 g/dL (28.0-37.0); MONOCYTES 4.6 %; MPV 9.7 fl. (7.2-11.1); NUCLEATED RBCS 0 /100WBC; PLATELET COUNT* 257 thou/uL (150-400); POLYS 90.5 %; RBC 3.08 mil/uL (4.20-5.00); RDW-CV 15.6 % (10.5-14.5); WBC 16.9 thou/uL (4.0-11.0)
[2019-08-29 06:13] LABS: ALBUMIN 1.1 g/dL (3.4-5.0); CALCIUM 7.7 mg/dL (8.5-10.1); CREATININE 0.5 mg/dL (0.6-1.3); MAGNESIUM 1.6 mg/dL (1.8-2.4); PHOSPHORUS* 3.3 mg/dL (2.5-4.9); POTASSIUM 3.5 mmol/L (3.5-5.1); TOTAL BILIRUBIN 0.8 mg/dL (<0.1-1.0)
--- NOTE | 2019-09-02 14:54 | EKG ---
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: : 1950 Requested By: Ninfa Hamilton Order Number: [id number] : Jayme Berkowitz Measurements Intervals [place] Rate: 72 P: 54 W[place]: 151 QRS: 29 QRSD: 88 T: -52 QT: 415 QTc: 455 Interpretive Statements Sinus rhythm Borderline repolarization abnormality Compared to ECG 06/03/2019 11:36:25 No significant changes Electronically Signed On 08-19-2019 11:36:35 RADIOLOGIC TECHNOLOGIST CHIEF by Jayme Berkowitz [email or web address] <ELECTRONICALLY SIGNED> By: Jayme Berkowitz MD, [facility] 08/19/19 1136 1807 1807 Jayme Berkowitz MD, [facility] /EPI
--- NOTE | 2019-09-02 14:55 | EKG ---
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 : 1950 Requested By: Arturo Roblero Order Number: [id number] Reading MD: Jose Saleem Measurements Intervals [place] Rate: 131 P: 55 GA: 130 QRS: -2 QRSD: 84 T: -48 QT: 396 QTc: 585 Interpretive Statements Sinus tachycardia Inferior infarct, age indeterminate Prolonged QT interval Compared to ECG 08/18/2019 18:07:58 Prolonged QT interval now present Sinus rhythm no longer present Electronically Signed On 08-22-2019 15:25:31 GROUND PRODUCTS DIRECTOR by Jose Saleem [email or web address] <ELECTRONICALLY SIGNED> By: Jose Saleem MD, [facility] 08/22/19 1525 24 24 Jose Saleem MD, [facility] /EPI
== END 2019-08-29 20:13 | disposition short-term general hospital (02) | DRG 377 ==
LOC: M.ERS 17:13 → M.2W 20:13 → M.ORTHSURG 20:13 → M.TBA-ER 20:13 → M.ORTHSURG 21:32 → M.2W 08-20 04:10 → M.ICU 08-23 07:49
PROVIDERS: Family Medicine; Internal Medicine; Internal Medicine Gastroenterology; Internal Medicine Pulmonary Disease; Nurse Practitioner Adult Health; Nurse Practitioner Family; ADMIT Internal Medicine
PROC: 5A1955Z Respiratory Ventilation, Greater than 96 Consecutive Hours (ICD-10-PCS; principal; 2019-08-23)
PROC: 5A09357 Assistance with Respiratory Ventilation, Less than 24 Consecutive Hours, Continuous Positive Airway Pressure (ICD-10-PCS; principal; 2019-08-23)
PROC: 06HY33Z Insertion of Infusion Device into Lower Vein, Percutaneous Approach (ICD-10-PCS; principal; 2019-08-23)
PROC: 0BH17EZ Insertion of Endotracheal Airway into Trachea, Via Natural or Artificial Opening (ICD-10-PCS; principal; 2019-08-23)
PROC: 02H633Z Insertion of Infusion Device into Right Atrium, Percutaneous Approach (ICD-10-PCS; 2019-08-24)
PROC: B548ZZA Ultrasonography of Superior Vena Cava, Guidance (ICD-10-PCS; 2019-08-24)
DX: K92.2 Gastrointestinal hemorrhage, unspecified (principal); K85.90 Acute pancreatitis without necrosis or infection, unspecified; A41.9 Sepsis, unspecified organism; G92 Toxic encephalopathy; J69.0 Pneumonitis due to inhalation of food and vomit; R65.21 Severe sepsis with septic shock; J96.00 Acute respiratory failure, unspecified whether with hypoxia or hypercapnia; E43 Unspecified severe protein-calorie malnutrition; I47.2 Ventricular tachycardia; E87.3 Alkalosis; Y84.8 Other medical procedures as the cause of abnormal reaction of the patient, or of later complication, without mention of misadventure at the time of the procedure; Z90.49 Acquired absence of other specified parts of digestive tract; I10 Essential (primary) hypertension; F32.9 Major depressive disorder, single episode, unspecified; F41.9 Anxiety disorder, unspecified; E78.00 Pure hypercholesterolemia, unspecified; Z90.710 Acquired absence of both cervix and uterus; Z79.51 Long term (current) use of inhaled steroids; Z79.899 Other long term (current) drug therapy; Z88.8 Allergy status to other drugs, medicaments and biological substances; Z91.048 Other nonmedicinal substance allergy status; E11.9 Type 2 diabetes mellitus without complications; I25.2 Old myocardial infarction; M35.00 Sjogren syndrome, unspecified; I25.10 Atherosclerotic heart disease of native coronary artery without angina pectoris; Z86.73 Personal history of transient ischemic attack (TIA), and cerebral infarction without residual deficits; E78.5 Hyperlipidemia, unspecified; Z80.0 Family history of malignant neoplasm of digestive organs; M54.9 Dorsalgia, unspecified; Z79.82 Long term (current) use of aspirin; R74.0 Nonspecific elevation of levels of transaminase and lactic acid dehydrogenase [LDH]; E87.6 Hypokalemia; Y95 Nosocomial condition; E83.39 Other disorders of phosphorus metabolism; Z79.2 Long term (current) use of antibiotics; J45.909 Unspecified asthma, uncomplicated; K52.9 Noninfective gastroenteritis and colitis, unspecified; I73.00 Raynaud's syndrome without gangrene; Z68.30 Body mass index [BMI] 30.0-30.9, adult; E83.51 Hypocalcemia; E83.42 Hypomagnesemia; E78.1 Pure hyperglyceridemia; D64.9 Anemia, unspecified; D72.0 Genetic anomalies of leukocytes; T50.995A Adverse effect of other drugs, medicaments and biological substances, initial encounter; Y92.89 Other specified places as the place of occurrence of the external cause